=== PATIENT | female | born 1950 | race Caucasian/White ===

== ENCOUNTER 2020-03-21 01:20 | Outpatient (CLI) | payer MEDICARE, SELFPAY ==
[2020-03-21 16:42] LABS: SARS-CoV-2 RNA PCR Negative
== END 2020-03-21 01:21 | disposition home or self-care (01) ==
LOC: ANHCOVIDDT 01:21
PROVIDERS: PCP Family Medicine; Visit Provider Surgery
DX: Z01.812 Encounter for preprocedural laboratory examination (principal); Z20.828 Contact with and (suspected) exposure to other viral communicable diseases
CPT/HCPCS: 87635; C9803; U0003

== ENCOUNTER 2020-03-24 01:00 | Day surgery (SDC) | payer MEDICARE, SELFPAY ==
[2020-03-24 10:40] VITALS: BP 128/67; PULSE 70; RESP 18; TEMP 36.2; O2SAT 96
[2020-03-24] MEDS: LACTATED RINGERS 1,000 ML 150 ML IV CONT (10:57)
--- NOTE | 2020-03-24 11:04 | WPDANESEPPF ---
Anes - Initial Pre Proc Eval Procedure: Operation Date: 03/24/20 12:00 Proposed Procedures p Colonoscopy - Salvador López DO Date/Time: 03/24/20 11:04 Surgeon: Salvador López DO Pre Op Diagnosis: Diverticulitis Patient Data Age: 70 Gender: F Height: Weight: 59.2 kg Last Vital Signs Temp 36.2 C L 03/24/20 10:40 Pulse 70 03/24/20 10:40 Resp 18 03/24/20 10:40 BP 128/67 03/24/20 10:40 Pulse Ox 96 03/24/20 10:40 Allergies Allergy/AdvReac Type Severity Reaction Status Date / Time No Known Allergies Allergy Verified 03/24/20 10:39 Home Medications Medication Instructions Recorded Confirmed Type albuterol sulfate 90 mcg/actuation 2 puff INHALATION Q4H PRN gm 08/16/19 03/18/20 History aerosol inhaler aspirin 81 mg tablet,delayed 81 mg PO DAILY 08/16/19 03/18/20 History release hydrochlorothiazide 25 mg tablet 25 mg PO DAILY 08/16/19 03/18/20 History levothyroxine 88 mcg tablet 88 mcg PO DAILY 08/16/19 03/18/20 History lisinopril 10 mg tablet 10 mg PO DAILY 08/16/19 03/18/20 History umeclidinium 62.5 mcg/actuation 1 inhalation INHALATION Q24H 08/29/19 03/18/20 History blister powder for inhalation Patient hx anesthesia problems: none Family hx anesthesia problems: none PMFSH Past Medical History Medical History Adrenal nodule Colonic mass History of COPD HTN (hypertension) Hypothyroidism Tobacco abuse Surgical History Surgical History H/O section Family History Family History Sibling Diabetes mellitus Lung cancer Other Leukemia Mother Diabetes mellitus Father Bone cancer Lung cancer Other Family history of malignant neoplasm Social History Social History Smoking packs per day: 0.5 Smoking cigarettes per day: 10.0 Years smoked: 40 Smoking pack-years: 20.00 Smoking status: Current every day smoker Tobacco type: cigarettes Alcohol intake: current Anes - Eval Final PreProcedure Day of Procedure 03/24/20 11:04 Patient weight: normal Heart: regular rate and rhythm Lungs: clear to auscultation Airway: Mallampati scale class II Neurological: alert and oriented Last oral intake: >/= 8 hours ASA classification: III Emergent: no Anesthetic plan: proceed Anesthesia type and monitoring: general GIVS and standard monitoring Informed Consent: The patient's anesthetic plan and its attendant risks and benefits were discussed with the patient/family/POA. Questions were solicited and answers provided to the satisfaction of the patient/family/POA.
--- NOTE | 2020-03-24 11:56 | PM.IMHP ---
H&P: HPI History of Present Illness Chief complaint: Diverticulitis Narrative: Mily De León is a 70 year old female who presents for colonoscopy. She had an attempted colonoscopy 6 months ago, but due to inflammation, could not pass scope beyond sigmoid. Biopsies were negative for cancer. She was treated for diverticulitis and has not had any abdominal pain or problems with BM's since then. No fam hx colon cancer. Review of Systems Review of Systems: All systems reviewed & are unremarkable except as noted in HPI and below PMFSH Past Medical History Medical History Adrenal nodule Colonic mass History of COPD HTN (hypertension) Hypothyroidism Tobacco abuse Surgical History Surgical History H/O section Family History Family History Sibling Diabetes mellitus Lung cancer Other Leukemia Mother Diabetes mellitus Father Bone cancer Lung cancer Other Family history of malignant neoplasm Social History Social History Smoking packs per day: 0.5 Smoking cigarettes per day: 10.0 Years smoked: 40 Smoking pack-years: 20.00 Smoking status: Current every day smoker Tobacco type: cigarettes Alcohol intake: current Meds Home Medications and Allergies Home Medications Medication Instructions Recorded Confirmed Type albuterol sulfate 90 mcg/actuation 2 puff INHALATION Q4H PRN gm 08/16/19 03/18/20 History aerosol inhaler aspirin 81 mg tablet,delayed 81 mg PO DAILY 08/16/19 03/18/20 History release hydrochlorothiazide 25 mg tablet 25 mg PO DAILY 08/16/19 03/18/20 History levothyroxine 88 mcg tablet 88 mcg PO DAILY 08/16/19 03/18/20 History lisinopril 10 mg tablet 10 mg PO DAILY 08/16/19 03/18/20 History umeclidinium 62.5 mcg/actuation 1 inhalation INHALATION Q24H 08/29/19 03/18/20 History blister powder for inhalation Allergies Allergy/AdvReac Type Severity Reaction Status Date / Time No Known Allergies Allergy Verified 03/24/20 10:39 Vital Signs Vital Signs - 24 hr 06/16/20 10:40 Temperature 36.2 C L Pulse Rate 70 Respiratory Rate 18 Blood Pressure 128/67 Pulse Oximetry 96 Exam Const: General: alert; No acute distress Orientation/consciousness: patient oriented x3 Limitations: no limitations HENMT: Head: normocephalic and atraumatic Ears: hearing grossly normal bilaterally General nose exam: Normal external nose present and Normal nares present Mouth: Yes Normal oral and palatal mucosa present and Yes moist mucous membranes Eyes: General: appearance normal, both eyes and all related structures Conjunctivae: conjunctivae normal Sclera: sclerae normal Pupils: Equal, round and reactive pupils present EOM: EOMs intact bilaterally Neck: Neck: normal visual inspection, full ROM, no lymphadenopathy, supple and no JVD Lymphatic: no lymphadenopathy noted Chest: Chest palpation & inspection: normal inspection of the chest Resp: Effort & Inspection: normal respiratory effort and able to speak in complete sentences Auscultation: clear to auscultation bilaterally Percussion: percussion normal Cardio: Jugular venous distension: no JVD Rate: regular rate Rhythm: regular rhythm Heart sounds: S1 normal heart sound present and S2 normal heart sound present Peripheral pulses: Peripheral pulses 2+ throughout GI: Inspection: normal to inspection GI Palp: No abdominal tenderness, Yes Soft to palpation, No Guarding due to palpation present (GI), No Hernia present and No Rebound tenderness present Percussion: Yes normal to percussion Auscultation: normal bowel sounds : General: Yes no CVA tenderness Back/Spine/Pelvis: Back: no CVA tenderness Skin: General skin exam: normal color and dry skin Neuro: General: patient oriented x3
[2020-03-24 12:29] VITALS: BP 114/61; PULSE 73; RESP 22; O2SAT 100
[2020-03-24 12:39] VITALS: BP 133/54; PULSE 70; RESP 18; O2SAT 100
[2020-03-24 12:49] VITALS: BP 133/60; PULSE 71; RESP 15; O2SAT 98
== END 2020-03-24 13:03 | disposition home or self-care (01) ==
PROVIDERS: PCP Family Medicine; Visit Provider Surgery
PROC: 0DJD8ZZ Inspection of Lower Intestinal Tract, Via Natural or Artificial Opening Endoscopic (ICD-10-PCS; CPT 45378; principal; 2020-03-24 12:00)
DX: K63.89 Other specified diseases of intestine (principal); I10 Essential (primary) hypertension; J44.9 Chronic obstructive pulmonary disease, unspecified; E03.9 Hypothyroidism, unspecified; Z79.82 Long term (current) use of aspirin; F17.210 Nicotine dependence, cigarettes, uncomplicated
CPT/HCPCS: 45380; 88305; J2704; J7120

== ENCOUNTER 2020-04-08 08:53 | Outpatient (CLI) | payer MEDICARE, SELFPAY ==
--- NOTE | ~2020-04-08 | XR_ITS ---
EXAMINATION: XR_ENEMABAC_CR DATE: 04/08/2020 10:07 INDICATION: Other intestinal obstruction. Incomplete colonoscopy. TECHNIQUE: A forensic ballistics expert radiograph was obtained. A catheter was inserted into the patient's rectum. Contra st was infused by gravity. Gas was infused by hand pump. Fluoroscopic spot images and conventional ra diographs were obtained. Fluoroscopy exposure time was 1.1 minutes. A total of 4 fluoroscopic spot im ages and 13 overhead radiographs were obtained. COMPARISON: None. FINDINGS: Multiple scattered colonic diverticula. There is a region of mild stenosis of the sigmoid colon corre sponds to the region of wall thickening on the prior CT likely representing scarring related to chron ic diverticulitis. No discrete mass or shouldering/abrupt transition along the mucosal surface at the margins of the region of stenosis to more specifically suggest malignancy. No intraluminal filling d efects, nodules or masses. Contrast extends into the normal appendix and normal distal ileum. IMPRESSION: 1. Extensive diverticulosis with mild stricture along the sigmoid colon without a discrete mass likel y or secondary to scarring post chronic diverticulitis. Reviewed, dictated and finalized at location A. IMPRESSION: 1. Extensive diverticulosis with mild stricture along the sigmoid colon without a discrete mass likely or secondary to scarring post chronic diverticulitis.
== END 2020-04-08 08:54 | disposition home or self-care (01) ==
LOC: ANHIMG 08:56
PROVIDERS: PCP Family Medicine; Visit Provider Surgery
DX: K56.699 Other intestinal obstruction unspecified as to partial versus complete obstruction (principal); K57.90 Diverticulosis of intestine, part unspecified, without perforation or abscess without bleeding
CPT/HCPCS: 74280